=== PATIENT | female | born 1965 | race Caucasian/White ===

== ENCOUNTER 2017-03-13 18:02 | Emergency (ER) | payer SELFPAY ==
--- NOTE | 2017-03-13 19:30 | NUR ---
PATIENT LEFT WITHOUT BEING SEEN BY DR. FLORES. NO FURTHER CARE PROVIDED FOR PATIENT.
== END 2017-03-13 19:30 | disposition left against medical advice (07) ==
LOC: MED 18:02
DX: M25.579 Pain in unspecified ankle and joints of unspecified foot (principal); Z53.21 Procedure and treatment not carried out due to patient leaving prior to being seen by health care provider

== ENCOUNTER 2017-03-29 03:15 | Emergency (ER) | payer OTHER ==
[~2017-03-29] VITALS: Ht 157.5 cm; Wt 53.5 kg
[2017-03-29 03:25] VITALS: BP 156/78
--- NOTE | 2017-03-29 03:45 | NUR ---
TO ER BED 7
--- NOTE | 2017-03-29 03:46 | NUR ---
PATIENT PRESENTS TO ED WITH BOTH ANKLES PAIN AND SWELLING, SINCE FEBRUARY 09, WITH PITTING EDEMA BLE. PT STATES MED HX OF MS, HTN, CHRONIC MIGRANES . DENIES N/V/D; SKIN IS PINK/WARM/DRY; AAOX4 WITH EVEN AND STEADY GAIT; LUNGS CLEAR BL; HR EVEN AND REGULAR; PT DENIES ANY FEVER, CP, SOB, OR COUGH AT THIS TIME; PATIENT STATES PAIN OF 7/10 AT THIS TIME; VSS; PATIENT POSITIONED FOR COMFORT; HOB ELEVATED; BEDRAILS UP X2; BED DOWN. ER MD MADE AWARE OF PT STATUS.
--- NOTE | 2017-03-29 03:47 | NUR ---
Patient being evaluated by physician at bedside.
[2017-03-29] MEDS ORDERED: ACETAMINOPHEN/CODEINE 300/30MG 1 TAB PO ONE (03:50)
[2017-03-29 04:19] LABS: ANION GAP 13.4 (8-16); CALCIUM 8.5 mg/dL (8.5-10.1); CARBON DIOXIDE 26.4 mmol/L (21-32); CREATININE 0.9 mg/dL (0.6-1.3); POTASSIUM 3.8 mmol/L (3.5-5.1)
--- NOTE | 2017-03-29 04:25 | NUR ---
PT HAVING US DONE AT BEDSIDE
[2017-03-29 05:54] VITALS: BP 139/72
--- NOTE | 2017-03-29 05:55 | NUR ---
Patient discharged with v/s stable. Written and verbal after care instructions given and explained. Patient alert, oriented and verbalized understanding of instructions. Ambulatory with steady gait. All questions addressed prior to discharge. ID band removed. Patient advised to follow up with PMD. Rx of TYLENOL WITH CODEINE given. Patient educated on indication of medication including possible reaction and side effects. Opportunity to ask questions provided and answered.
== END 2017-03-29 05:54 | disposition home or self-care (01) ==
LOC: MED 03:15
DX: R60.0 Localized edema (principal); M25.571 Pain in right ankle and joints of right foot; M79.661 Pain in right lower leg; I10 Essential (primary) hypertension; E03.9 Hypothyroidism, unspecified; Z88.0 Allergy status to penicillin; Z88.2 Allergy status to sulfonamides
CPT/HCPCS: 36415; 80048; 83880; 93005; 93971; 99285; Q0092